=== PATIENT | male | born 1950 | race Caucasian/White ===

== ENCOUNTER 2016-09-14 20:26 | Inpatient (IN) | payer OTHER ==
[~2016-09-14] VITALS: Ht 188 cm; Wt 106.8 kg
[~2016-09-14 20:26] MED LIST: BREO ELLIPTA I1 EACH IH; CEFTIN500 MG PO; DIOVAN HCT 11 TABLET PO; DUONEB 2.5-0.5 M3 ML AEROSOL; FLOMAX0.4 MG PO; NORVASC10 MG PO; PANTOPRAZOLE SO40 MG PO; PERCOCET 5/31 TABLET PO; PRADAXA75 MG PO; PREDNISONE10 MG PO; TESTOSTERO200 MG/12 SQ; TOPROL XL100 MG PO; VENTOLIN HFA18 GM IH; ZYLOPRIM300 MG PO
[2016-09-14 20:59] LABS: EOSINOPHIL (%) 0.8 % (0-5); EOSINOPHIL COUNT 0.1 K/uL (0-0.3); HEMATOCRIT 47.9 % (38.0-50.0); IMMATURE GRANULOCYTE (%) 0.5 % (0.0-0.7); IMMATURE GRANULOCYTE COUNT 0.4 K/uL; LYMPHOCYTE COUNT 3.7 K/uL (1.0-2.8); MCH 31.3 PG (29.0-34.0); MCHC 32.6 G/DL (30.0-36.0); MEAN PLAT.VOLUME 9.7 uM^3 (9.0-12.4); MONOCYTE (%) 10.6 % (3-12); MONOCYTE COUNT 0.9 K/uL (0-0.8); NEUTROPHIL (%) 43.6 % (45-76); NEUTROPHIL COUNT 3.6 K/uL (1.8-6.4); PLATELET COUNT 233 K/uL (156-360); RBC DIS.WIDTH-CV 13.5 % (11.8-14.6); RED BLOOD COUNT 4.99 M/uL (4.00-5.50); WHITE BLOOD COUNT 8.3 K/uL (4.1-10.2)
[2016-09-14 21:11] LABS: AMYLASE 263 IU/L (1-118); CHLORIDE 98 mEq/L (99-109); POTASSIUM 4.7 mEq/L (3.7-5.4); SODIUM 137 mEq/L (136-147)
[2016-09-14 21:13] LABS: GLUCOSE 119 mg/dL (70-99)
[2016-09-14 21:15] LABS: ANION GAP 20 MEQ/L (2-14); INTER. NORMALIZED RATIO 1.2; PROTHROMBIN TIME 12.6 (9.2-11.2); PTT 45.3 (25-32)
[2016-09-14 21:16] LABS: SERUM ETHYL ALCOHOL 181 mg/dL
[2016-09-14 21:17] LABS: GFR ESTIMATE (CALCULATED) 30 mL/min/
[2016-09-14 21:18] LABS: UREA NITROGEN (BUN) 23 mg/dL (9-23)
[2016-09-14 21:20] LABS: TROP-I INTERPRETATION NEGATIVE; TROPONIN-I 0.01 ng/mL (0.0-0.30)
[2016-09-14 21:20] LABS: LIPASE 61 U/L (1.0-51.0)
[2016-09-14 22:50] VITALS: BP 102/77
[2016-09-14 23:12] VITALS: BP 84/45
[2016-09-14 23:30] VITALS: BP 84/45
[2016-09-15] VITALS (16 sets, daily range): BP systolic 102–154; BP diastolic 66–101
[2016-09-15 00:07] LABS: BASE EXCESS -10.6 mEq/L (-3 to +3); BICARBONATE 17.2 mEq/L (22-26); CARBOXY HGB 2.3 % (0-5); METHEMOGLOBIN 1.4 % (0-1.5); PCO2 44 mm Hg (35-45); PO2 536 mm Hg (80-100); SITE ALINE
[2016-09-15 00:08] LABS: DEVICE VENT; FI02 100 %; MECHANICAL RATE 18 resp/min; MODE ACVC; PEEP 5 CM/H20; TIDAL VOLUME 534 ML; TOTAL RESP RATE 18 resp/min
[2016-09-15 00:14] LABS: METH RESISTANT S AUREUS PCR NEGATIVE (NEGATIVE)
[2016-09-15 00:23] LABS: PROBE CHECK PASS; SPECIMEN PROCESSING CONTROL PASS
[2016-09-15 00:26] LABS: HEMATOCRIT 46.5 % (38.0-50.0); MCHC 32.7 G/DL (30.0-36.0); MCV 94.9 FL (86-99); MEAN PLAT.VOLUME 9.7 uM^3 (9.0-12.4); PLATELET COUNT 220 K/uL (156-360); RBC DIS.WIDTH-CV 13.5 % (11.8-14.6); WHITE BLOOD COUNT 9.2 K/uL (4.1-10.2)
[2016-09-15 00:35] LABS: CHLORIDE 106 mEq/L (99-109); SODIUM 136 mEq/L (136-147)
[2016-09-15 00:36] LABS: MAGNESIUM 1.8 mg/dL (1.3-2.7)
[2016-09-15 00:39] LABS: ANION GAP 14 MEQ/L (2-14)
[2016-09-15 00:40] LABS: TOTAL BILIRUBIN 0.4 mg/dL (0.0-1.0)
[2016-09-15 00:42] LABS: ALKALINE PHOSPHATASE 68 IU/L (3-129); GFR ESTIMATE (CALCULATED) 38 mL/min/
[2016-09-15 00:43] LABS: UREA NITROGEN (BUN) 24 mg/dL (9-23)
[2016-09-15 00:47] LABS: TROP-I INTERPRETATION NEGATIVE; TROPONIN-I 0.12 ng/mL (0.0-0.30)
[2016-09-15 00:52] LABS: GLUCOSE 80 mg/dL (70-99); POTASSIUM 5.7 mEq/L (3.7-5.4)
[2016-09-15 01:01] LABS: INTER. NORMALIZED RATIO 1.3; PROTHROMBIN TIME 13.6 (9.2-11.2)
[2016-09-15] MEDS ORDERED: METHOTREXATE2.5 MG PO (01:08)
[2016-09-15] MEDS ORDERED: ATORVASTATIN CA20 MG PO (01:08)
[2016-09-15] MEDS ORDERED: FUROSEMIDE20 MG PO (01:11)
[2016-09-15] MEDS ORDERED: SINGULAIR10 MG PO (01:12)
[2016-09-15] MEDS ORDERED: TURMERIC500 M1 PO (01:14)
[2016-09-15] MEDS ORDERED: GLUCOSA-CHOND-1 EACH PO (01:16)
[2016-09-15] MEDS ORDERED: VALERIAN ROOT100 MG PO (01:17)
[2016-09-15] MEDS ORDERED: GUAIFENESIN400 MG PO (01:18)
[2016-09-15] MEDS ORDERED: VITAMIN C1000 MG PO (01:19)
[2016-09-15] MEDS ORDERED: MOVE FREE ULTR1 EAC1 PO (01:20)
[2016-09-15 02:00] LABS: ADD MIUA? YES; BILIRUBIN NEGATIVE; BLOOD LARGE; COLOR YELLOW ((YELLOW)); GLUCOSE (STRIP) NEGATIVE; KETONES NEGATIVE; LEUKOCYTES NEGATIVE; NITRITE NEGATIVE; PH, URINE 6.5 (5-8); PROTEIN (STRIP) >=300
[2016-09-15 02:13] LABS: SPECIFIC GRAVITY 1.057 (1.000-1.030)
[2016-09-15 02:30] LABS: RED BLOOD CELLS TNTC /HPF (0-5)
[2016-09-15 02:31] LABS: EPITHELIAL CELLS RARE; MUCUS 3+; WHITE BLOOD CELLS 0-5 /HPF (0-5)
[2016-09-15 02:32] LABS: BACTERIA 1+; UCUL ADDED? NO
[2016-09-15 02:33] LABS: AMORPHOUS PHOSPHATE CRYSTALS 3+; CASTS NONE SEEN /LPF; CRYSTALS PRESENT
[2016-09-15 02:46] LABS: C DIFF TOXIN POSITIVE (NEGATIVE)
[2016-09-15 03:01] LABS: PROBE CHECK PASS
[2016-09-15 06:04] LABS: POINT-OF-CARE METER ID UU13113748
[2016-09-15 06:08] LABS: BASE EXCESS -10.2 mEq/L (-3 to +3); BICARBONATE 20.6 mEq/L (22-26); CARBOXY HGB 1.8 % (0-5); COMMENTS - BLOOD GASES C+; DEVICE VENTILATOR; FI02 60 %; MECHANICAL RATE 22 resp/min; METHEMOGLOBIN 1.4 % (0-1.5); MODE AC; PCO2 65 mm Hg (35-45); PEEP 5 CM/H20; PO2 142 mm Hg (80-100); SITE A-LINE; TIDAL VOLUME 500 ML; TOTAL RESP RATE 22 resp/min
[2016-09-15 06:09] LABS: pH 7.11 (7.35-7.45)
[2016-09-15 06:12] LABS: INTER. NORMALIZED RATIO 1.2; PROTHROMBIN TIME 12.4 (9.2-11.2); PTT 40.1 (25-32)
[2016-09-15 06:20] LABS: EOSINOPHIL (%) 0 % (0-5); HEMATOCRIT 51.5 % (38.0-50.0); IMMATURE GRANULOCYTE (%) 0.4 % (0.0-0.7); IMMATURE GRANULOCYTE COUNT 0.1 K/uL; LYMPHOCYTE COUNT 0.8 K/uL (1.0-2.8); MCH 30.9 PG (29.0-34.0); MCHC 31.8 G/DL (30.0-36.0); MEAN PLAT.VOLUME 10.6 uM^3 (9.0-12.4); MONOCYTE (%) 7.7 % (3-12); NEUTROPHIL (%) 85.7 % (45-76); NEUTROPHIL COUNT 10.9 K/uL (1.8-6.4); PLATELET COUNT 255 K/uL (156-360); RBC DIS.WIDTH-CV 13.6 % (11.8-14.6); RBC DIS.WIDTH-SD 48.3 % (39-53); RED BLOOD COUNT 5.31 M/uL (4.00-5.50)
[2016-09-15 06:21] LABS: TROP-I INTERPRETATION INDETERMINATE; TROPONIN-I 0.34 ng/mL (0.0-0.30); WHITE BLOOD COUNT 12.8 K/uL (4.1-10.2)
[2016-09-15 06:24] LABS: ANION GAP 18 MEQ/L (2-14); CHLORIDE 100 MEQ/L (99-109); GFR ESTIMATE (CALCULATED) 40 mL/min/; GLUCOSE 56 mg/dL (70-99); MAGNESIUM 1.6 mg/dl (1.3-2.7); POTASSIUM 5.6 MEQ/L (3.7-5.4); SAMPLE HEMOLYSIS CHECK 0; SAMPLE ICTERIC CHECK 0; SAMPLE LIPEMIA CHECK 0; SODIUM 136 MEQ/L (136-147); UREA NITROGEN (BUN) 25 mg/dL (9-23)
[2016-09-15 07:11] LABS: BASE EXCESS -9.4 mEq/L (-3 to +3); BICARBONATE 19.1 mEq/L (22-26); CARBOXY HGB 1.8 % (0-5); METHEMOGLOBIN 1.3 % (0-1.5)
[2016-09-15 07:12] LABS: COMMENTS - BLOOD GASES A+C+; DEVICE 840; FI02 60 %; INSPIRATION TIME 0.7 seconds; MECHANICAL RATE 26 resp/min; MODE AC; PCO2 50 mm Hg (35-45); PEEP 5 CM/H20; PO2 274 mm Hg (80-100); SITE ALINE; TIDAL VOLUME 500 ML; TOTAL RESP RATE 26 resp/min; pH 7.19 (7.35-7.45)
[2016-09-15 07:13] LABS: POINT-OF-CARE METER ID UU13113748
[2016-09-15 11:49] LABS: BASE EXCESS -9.2 mEq/L (-3 to +3); BICARBONATE 18.4 mEq/L (22-26); CARBOXY HGB 1.6 % (0-5); METHEMOGLOBIN 1.3 % (0-1.5); PCO2 45 mm Hg (35-45); PO2 234 mm Hg (80-100); SITE ALINE; pH 7.22 (7.35-7.45)
[2016-09-15 11:50] LABS: COMMENTS - BLOOD GASES A+C+; DEVICE 840; FI02 60 %; INSPIRATION TIME 0.75 seconds; MECHANICAL RATE 26 resp/min; MODE AC; PEEP 5 CM/H20; TIDAL VOLUME 500 ML; TOTAL RESP RATE 26 resp/min
[2016-09-15 12:16] LABS: POINT-OF-CARE METER ID UU13113803
[2016-09-15 12:49] LABS: EOSINOPHIL (%) 0 % (0-5); HEMATOCRIT 49.8 % (38.0-50.0); IMMATURE GRANULOCYTE (%) 0.2 % (0.0-0.7); LYMPHOCYTE COUNT 0.7 K/uL (1.0-2.8); MCHC 32.9 G/DL (30.0-36.0); MCV 97.3 FL (86-99); MEAN PLAT.VOLUME 10.6 uM^3 (9.0-12.4); MONOCYTE (%) 6.4 % (3-12); MONOCYTE COUNT 0.7 K/uL (0-0.8); NEUTROPHIL (%) 87.2 % (45-76); NEUTROPHIL COUNT 9.7 K/uL (1.8-6.4); PLATELET COUNT 208 K/uL (156-360); RBC DIS.WIDTH-CV 13.5 % (11.8-14.6); RBC DIS.WIDTH-SD 48.4 % (39-53); RED BLOOD COUNT 5.12 M/uL (4.00-5.50); WHITE BLOOD COUNT 11.1 K/uL (4.1-10.2)
[2016-09-15 13:07] LABS: INTER. NORMALIZED RATIO 1.2; PROTHROMBIN TIME 12.6 (9.2-11.2)
[2016-09-15 13:47] LABS: ANION GAP 19 MEQ/L (2-14); CHLORIDE 98 MEQ/L (99-109); GFR ESTIMATE (CALCULATED) 40 mL/min/; POTASSIUM 5.2 MEQ/L (3.7-5.4); SAMPLE HEMOLYSIS CHECK 2; SAMPLE ICTERIC CHECK 0; SAMPLE LIPEMIA CHECK 0; SODIUM 135 MEQ/L (136-147); UREA NITROGEN (BUN) 28 mg/dL (9-23)
[2016-09-15 13:50] LABS: TROP-I INTERPRETATION INDETERMINATE; TROPONIN-I 0.37 ng/mL (0.0-0.30)
[2016-09-15 13:53] LABS: GLUCOSE 195 mg/dL (70-99); MAGNESIUM 2.2 mg/dl (1.3-2.7)
[2016-09-15] MEDS ORDERED: NORVASC5 MG PO (13:57)
[2016-09-15] MEDS ORDERED: BUTRANS1 EACH TD (13:58)
[2016-09-15] MEDS ORDERED: PANTOPRAZOLE SO40 MG PO (14:13)
[2016-09-15] MEDS ORDERED: PREDNISONE10 MG PO (14:14)
[2016-09-15 17:58] LABS: CARBOXY HGB 1.9 % (0-5); COMMENTS - BLOOD GASES C+ANA; DEVICE 840 PB; FI02 60 %; MECHANICAL RATE 26 resp/min; METHEMOGLOBIN 1.1 % (0-1.5); MODE ACVC+; PCO2 46 mm Hg (35-45); PO2 250 mm Hg (80-100); SITE ALINE; TIDAL VOLUME 500 ML; TOTAL RESP RATE 26 resp/min
[2016-09-15 17:59] LABS: INSPIRATION TIME 0.75 seconds; PEEP 5 CM/H20
[2016-09-15 18:15] LABS: POINT-OF-CARE METER ID UU13113748
[2016-09-15 18:23] LABS: ANION GAP 17 MEQ/L (2-14); CHLORIDE 102 MEQ/L (99-109); GFR ESTIMATE (CALCULATED) 38 mL/min/; GLUCOSE 221 mg/dL (70-99); SAMPLE HEMOLYSIS CHECK 2; SAMPLE ICTERIC CHECK 0; SAMPLE LIPEMIA CHECK 0; SODIUM 135 MEQ/L (136-147); UREA NITROGEN (BUN) 32 mg/dL (9-23)
[2016-09-15 18:24] LABS: POTASSIUM 4.4 MEQ/L (3.7-5.4)
[2016-09-15 18:26] LABS: EOSINOPHIL (%) 0 % (0-5); HEMATOCRIT 43.8 % (38.0-50.0); IMMATURE GRANULOCYTE (%) 0.1 % (0.0-0.7); INTER. NORMALIZED RATIO 1.4; LYMPHOCYTE COUNT 0.5 K/uL (1.0-2.8); MCH 31.6 PG (29.0-34.0); MCHC 32.6 G/DL (30.0-36.0); MCV 96.7 FL (86-99); MEAN PLAT.VOLUME 10.6 uM^3 (9.0-12.4); MONOCYTE (%) 4.4 % (3-12); MONOCYTE COUNT 0.4 K/uL (0-0.8); NEUTROPHIL (%) 90.2 % (45-76); NEUTROPHIL COUNT 7.7 K/uL (1.8-6.4); PLATELET COUNT 193 K/uL (156-360); PROTHROMBIN TIME 14.1 (9.2-11.2); PTT 43.3 (25-32); RBC DIS.WIDTH-CV 13.3 % (11.8-14.6); RBC DIS.WIDTH-SD 46.6 % (39-53); RED BLOOD COUNT 4.53 M/uL (4.00-5.50); WHITE BLOOD COUNT 8.5 K/uL (4.1-10.2)
[2016-09-15 18:27] LABS: TROP-I INTERPRETATION NEGATIVE; TROPONIN-I 0.26 ng/mL (0.0-0.30)
[2016-09-16 00:20] LABS: BASE EXCESS -7.7 mEq/L (-3 to +3); BICARBONATE 19.7 mEq/L (22-26); CARBOXY HGB 1.8 % (0-5); METHEMOGLOBIN 1.3 % (0-1.5); PCO2 46 mm Hg (35-45); PO2 117 mm Hg (80-100)
[2016-09-16 00:21] LABS: COMMENTS - BLOOD GASES C+; DEVICE 840; FI02 60 %; INSPIRATION TIME 0.75 seconds; MECHANICAL RATE 26 resp/min; MODE AC; PEEP 5 CM/H20; SITE ALINE; TIDAL VOLUME 500 ML; TOTAL RESP RATE 26 resp/min
[2016-09-16 00:23] LABS: pH 7.24 (7.35-7.45)
[2016-09-16 00:56] LABS: EOSINOPHIL (%) 0 % (0-5); HEMATOCRIT 44.2 % (38.0-50.0); IMMATURE GRANULOCYTE (%) 0.1 % (0.0-0.7); IMMATURE GRANULOCYTE COUNT 0.1 K/uL; LYMPHOCYTE COUNT 0.3 K/uL (1.0-2.8); MCH 30.6 PG (29.0-34.0); MCHC 32.4 G/DL (30.0-36.0); MCV 94.6 FL (86-99); MEAN PLAT.VOLUME 10.1 uM^3 (9.0-12.4); MONOCYTE (%) 6.6 % (3-12); MONOCYTE COUNT 0.6 K/uL (0-0.8); NEUTROPHIL (%) 90.3 % (45-76); NEUTROPHIL COUNT 7.6 K/uL (1.8-6.4); PLATELET COUNT 189 K/uL (156-360); RBC DIS.WIDTH-CV 13.4 % (11.8-14.6); RBC DIS.WIDTH-SD 44.5 % (39-53); RED BLOOD COUNT 4.67 M/uL (4.00-5.50); WHITE BLOOD COUNT 8.4 K/uL (4.1-10.2)
[2016-09-16 01:00] VITALS: BP 92/62
[2016-09-16 01:05] LABS: INTER. NORMALIZED RATIO 1.4; PROTHROMBIN TIME 14.1 (9.2-11.2); PTT 39.4 (25-32)
[2016-09-16 01:06] LABS: CHLORIDE 107 mEq/L (99-109); SODIUM 137 mEq/L (136-147)
[2016-09-16 01:07] LABS: MAGNESIUM 1.9 mg/dL (1.3-2.7)
[2016-09-16 01:08] LABS: GLUCOSE 188 mg/dL (70-99); POTASSIUM 3.5 mEq/L (3.7-5.4)
[2016-09-16 01:10] LABS: ANION GAP 13 MEQ/L (2-14)
[2016-09-16 01:12] LABS: GFR ESTIMATE (CALCULATED) 46 mL/min/
[2016-09-16 01:13] LABS: UREA NITROGEN (BUN) 32 mg/dL (9-23)
[2016-09-16 01:16] LABS: TROP-I INTERPRETATION NEGATIVE; TROPONIN-I 0.18 ng/mL (0.0-0.30)
[2016-09-16 05:00] VITALS: BP 125/68
[2016-09-16 05:28] LABS: POINT-OF-CARE METER ID UU13113731
[2016-09-16 05:47] LABS: EOSINOPHIL (%) 0 % (0-5); IMMATURE GRANULOCYTE (%) 0.1 % (0.0-0.7); LYMPHOCYTE COUNT 0.2 K/uL (1.0-2.8); MCH 31.4 PG (29.0-34.0); MCHC 33.3 G/DL (30.0-36.0); MCV 94.3 FL (86-99); MEAN PLAT.VOLUME 10.7 uM^3 (9.0-12.4); MONOCYTE (%) 8.5 % (3-12); MONOCYTE COUNT 0.7 K/uL (0-0.8); NEUTROPHIL (%) 88.9 % (45-76); NEUTROPHIL COUNT 6.8 K/uL (1.8-6.4); PLATELET COUNT 196 K/uL (156-360); RBC DIS.WIDTH-CV 13.3 % (11.8-14.6); RED BLOOD COUNT 4.56 M/uL (4.00-5.50); WHITE BLOOD COUNT 7.7 K/uL (4.1-10.2)
[2016-09-16 06:00] LABS: INTER. NORMALIZED RATIO 1.3; PROTHROMBIN TIME 13.4 (9.2-11.2); PTT 35.7 (25-32)
[2016-09-16 06:05] LABS: BASE EXCESS -3.9 mEq/L (-3 to +3); BICARBONATE 21.6 mEq/L (22-26); CARBOXY HGB 1.6 % (0-5); COMMENTS - BLOOD GASES C+; METHEMOGLOBIN 1.5 % (0-1.5); PCO2 40 mm Hg (35-45); PO2 193 mm Hg (80-100); SITE ALINE; pH 7.34 (7.35-7.45)
[2016-09-16 06:06] LABS: DEVICE 840; FI02 60 %; INSPIRATION TIME 0.75 seconds; MECHANICAL RATE 26 resp/min; MODE AC; PEEP 5 CM/H20; TIDAL VOLUME 550 ML; TOTAL RESP RATE 26 resp/min
[2016-09-16 06:21] LABS: TROP-I INTERPRETATION NEGATIVE; TROPONIN-I 0.15 ng/mL (0.0-0.30)
[2016-09-16 06:23] LABS: ANION GAP 12 MEQ/L (2-14); CHLORIDE 104 MEQ/L (99-109); GFR ESTIMATE (CALCULATED) 46 mL/min/; GLUCOSE 165 mg/dL (70-99); POTASSIUM 3.3 MEQ/L (3.7-5.4); SAMPLE HEMOLYSIS CHECK 0; SAMPLE ICTERIC CHECK 0; SAMPLE LIPEMIA CHECK 0; SODIUM 138 MEQ/L (136-147); UREA NITROGEN (BUN) 31 mg/dL (9-23)
[2016-09-16 06:24] LABS: MAGNESIUM 1.6 mg/dl (1.3-2.7)
[2016-09-16 07:20] VITALS: BP 87/58
[2016-09-16 09:00] VITALS: BP 74/52
[2016-09-16 11:57] LABS: BASE EXCESS -2.6 mEq/L (-3 to +3); BICARBONATE 23.2 mEq/L (22-26); CARBOXY HGB 1.7 % (0-5); METHEMOGLOBIN 1.5 % (0-1.5); PCO2 43 mm Hg (35-45); PO2 183 mm Hg (80-100); pH 7.34 (7.35-7.45)
[2016-09-16 11:58] LABS: COMMENTS - BLOOD GASES C+; DEVICE 840 VENTILATOR; FI02 60 %; INSPIRATION TIME 0.75 seconds; MECHANICAL RATE 26 resp/min; MODE AC/VC+; PEEP 5 CM/H20; SITE LT RADIAL ALINE; TIDAL VOLUME 550 ML; TOTAL RESP RATE 26 resp/min
[2016-09-16 12:00] LABS: POINT-OF-CARE METER ID UU13113731
[2016-09-16 12:23] LABS: EOSINOPHIL (%) 0 % (0-5); HEMATOCRIT 41.9 % (38.0-50.0); IMMATURE GRANULOCYTE (%) 0.5 % (0.0-0.7); IMMATURE GRANULOCYTE COUNT 0.4 K/uL; LYMPHOCYTE COUNT 0.2 K/uL (1.0-2.8); MCH 30.8 PG (29.0-34.0); MCHC 33.2 G/DL (30.0-36.0); MCV 92.9 FL (86-99); MEAN PLAT.VOLUME 9.9 uM^3 (9.0-12.4); MONOCYTE (%) 6.2 % (3-12); MONOCYTE COUNT 0.5 K/uL (0-0.8); NEUTROPHIL (%) 90.6 % (45-76); NEUTROPHIL COUNT 7.3 K/uL (1.8-6.4); PLATELET COUNT 196 K/uL (156-360); RBC DIS.WIDTH-CV 13.4 % (11.8-14.6); RBC DIS.WIDTH-SD 44.2 % (39-53); RED BLOOD COUNT 4.51 M/uL (4.00-5.50)
[2016-09-16 12:31] LABS: CHLORIDE 107 mEq/L (99-109); POTASSIUM 3.6 mEq/L (3.7-5.4); SODIUM 138 mEq/L (136-147)
[2016-09-16 12:33] LABS: GLUCOSE 131 mg/dL (70-99)
[2016-09-16 12:35] LABS: ANION GAP 12 MEQ/L (2-14)
[2016-09-16 12:37] LABS: GFR ESTIMATE (CALCULATED) 54 mL/min/
[2016-09-16 12:38] LABS: MAGNESIUM 2.4 mg/dL (1.3-2.7); UREA NITROGEN (BUN) 30 mg/dL (9-23)
[2016-09-16 12:43] LABS: TROP-I INTERPRETATION NEGATIVE; TROPONIN-I 0.12 ng/mL (0.0-0.30)
[2016-09-16 12:59] LABS: INTER. NORMALIZED RATIO 1.3; PROTHROMBIN TIME 13.1 (9.2-11.2); PTT 40.1 (25-32)
[2016-09-16 18:01] LABS: POINT-OF-CARE METER ID UU14174217
[2016-09-16] MEDS ORDERED: VALSARTAN-HCTZ1 EAC1 PO (18:32)
[2016-09-16] MEDS ORDERED: TAMSULOSIN HCL0.4 MG PO (18:32)
[2016-09-16] MEDS ORDERED: METOPROLOL SUC100 MG PO (18:33)
[2016-09-16] MEDS ORDERED: PRADAXA75 MG PO (18:33)
[2016-09-16] MEDS ORDERED: MONTELUKAST SOD10 MG PO (18:33)
[2016-09-16] MEDS ORDERED: ATORVASTATIN CA20 MG PO (18:33)
[2016-09-16] MEDS ORDERED: PERCOCET 5/31 TABLET PO (18:34)
[2016-09-16] MEDS ORDERED: AMLODIPINE BESYL5 MG PO (18:34)
[2016-09-16 19:30] LABS: EOSINOPHIL (%) 0 % (0-5); HEMATOCRIT 40.6 % (38.0-50.0); IMMATURE GRANULOCYTE (%) 0.2 % (0.0-0.7); LYMPHOCYTE COUNT 0.2 K/uL (1.0-2.8); MCH 31.3 PG (29.0-34.0); MCHC 33.3 G/DL (30.0-36.0); MEAN PLAT.VOLUME 10.8 uM^3 (9.0-12.4); MONOCYTE (%) 6.6 % (3-12); MONOCYTE COUNT 0.6 K/uL (0-0.8); NEUTROPHIL (%) 90.7 % (45-76); NEUTROPHIL COUNT 7.7 K/uL (1.8-6.4); PLATELET COUNT 194 K/uL (156-360); RBC DIS.WIDTH-CV 13.4 % (11.8-14.6); RBC DIS.WIDTH-SD 45.8 % (39-53); RED BLOOD COUNT 4.32 M/uL (4.00-5.50); WHITE BLOOD COUNT 8.5 K/uL (4.1-10.2)
[2016-09-16 19:55] LABS: ANION GAP 11 MEQ/L (2-14); CHLORIDE 106 MEQ/L (99-109); GFR ESTIMATE (CALCULATED) 46 mL/min/; MAGNESIUM 1.8 mg/dl (1.3-2.7); POTASSIUM 3.9 MEQ/L (3.7-5.4); SAMPLE HEMOLYSIS CHECK 0; SAMPLE ICTERIC CHECK 0; SAMPLE LIPEMIA CHECK 0; SODIUM 139 MEQ/L (136-147); TROP-I INTERPRETATION NEGATIVE; TROPONIN-I 0.17 ng/mL (0.0-0.30); UREA NITROGEN (BUN) 29 mg/dL (9-23)
[2016-09-16 19:56] LABS: GLUCOSE 93 mg/dL (70-99)
[2016-09-16 19:58] LABS: INTER. NORMALIZED RATIO 1.3; PROTHROMBIN TIME 13.2 (9.2-11.2)
[2016-09-16 22:00] VITALS: BP 113/61
[2016-09-16 23:00] VITALS: BP 116/64
[2016-09-17] VITALS (24 sets, daily range): BP systolic 92–163; BP diastolic 51–79
[2016-09-17] LABS: POINT-OF-CARE METER ID UU14174217
[2016-09-17 00:45] LABS: POINT-OF-CARE METER ID UU13113731
[2016-09-17 05:22] LABS: POINT-OF-CARE METER ID UU14162636
[2016-09-17 05:39] LABS: EOSINOPHIL (%) 0 % (0-5); HEMATOCRIT 41.8 % (38.0-50.0); IMMATURE GRANULOCYTE (%) 0.2 % (0.0-0.7); LYMPHOCYTE COUNT 0.2 K/uL (1.0-2.8); MCH 30.5 PG (29.0-34.0); MCHC 31.3 G/DL (30.0-36.0); MCV 97.4 FL (86-99); MEAN PLAT.VOLUME 10.4 uM^3 (9.0-12.4); MONOCYTE (%) 2.6 % (3-12); MONOCYTE COUNT 0.2 K/uL (0-0.8); NEUTROPHIL (%) 94.6 % (45-76); NEUTROPHIL COUNT 8.1 K/uL (1.8-6.4); PLATELET COUNT 192 K/uL (156-360); RBC DIS.WIDTH-SD 49.5 % (39-53); RED BLOOD COUNT 4.29 M/uL (4.00-5.50); WHITE BLOOD COUNT 8.6 K/uL (4.1-10.2)
[2016-09-17 06:00] LABS: INTER. NORMALIZED RATIO 1.2; PROTHROMBIN TIME 12.4 (9.2-11.2); PTT 41.2 (25-32)
[2016-09-17 06:04] LABS: ANION GAP 11 MEQ/L (2-14); CHLORIDE 104 MEQ/L (99-109); GFR ESTIMATE (CALCULATED) 35 mL/min/; MAGNESIUM 1.8 mg/dl (1.3-2.7); POTASSIUM 4.6 MEQ/L (3.7-5.4); SAMPLE HEMOLYSIS CHECK 0; SAMPLE ICTERIC CHECK 0; SAMPLE LIPEMIA CHECK 0; SODIUM 139 MEQ/L (136-147); UREA NITROGEN (BUN) 34 mg/dL (9-23)
[2016-09-17 06:06] LABS: GLUCOSE 175 mg/dL (70-99)
[2016-09-17 11:03] LABS: BASE EXCESS -1.8 mEq/L (-3 to +3); BICARBONATE 27.2 mEq/L (22-26); METHEMOGLOBIN 1.4 % (0-1.5)
[2016-09-17 11:04] LABS: PCO2 65 mm Hg (35-45); PO2 71 mm Hg (80-100); SITE LB; pH 7.23 (7.35-7.45)
[2016-09-17 11:05] LABS: COMMENTS - BLOOD GASES C+; DEVICE 840; FI02 40 %; MECHANICAL RATE 16 resp/min; MODE A/C; PEEP 5 CM/H20; TIDAL VOLUME 520 ML; TOTAL RESP RATE 16 resp/min
[2016-09-17 12:06] LABS: POINT-OF-CARE METER ID UU13113731
[2016-09-17 12:54] LABS: POINT-OF-CARE METER ID UU13113731
[2016-09-17 17:35] LABS: POINT-OF-CARE METER ID UU13113731
[2016-09-17 23:27] LABS: POINT-OF-CARE METER ID UU13113731
[2016-09-18] VITALS (22 sets, daily range): BP systolic 116–175; BP diastolic 61–102
[2016-09-18 05:44] LABS: MEAN PLAT.VOLUME 11.3 uM^3 (9.0-12.4); PLATELET COUNT 209 K/uL (156-360)
[2016-09-18 05:50] LABS: POINT-OF-CARE METER ID UU13113731
[2016-09-18 05:53] LABS: INTER. NORMALIZED RATIO 1.1; PROTHROMBIN TIME 11.2 (9.2-11.2); PTT 40.1 (25-32)
[2016-09-18 06:12] LABS: HEMATOCRIT 38.9 % (38.0-50.0); MCH 31.5 PG (29.0-34.0); MCHC 33.2 G/DL (30.0-36.0); MCV 94.9 FL (86-99); RBC DIS.WIDTH-CV 13.9 % (11.8-14.6); RBC DIS.WIDTH-SD 48.2 % (39-53); WHITE BLOOD COUNT 10.9 K/uL (4.1-10.2)
[2016-09-18 06:35] LABS: ANION GAP 6 MEQ/L (2-14); CHLORIDE 107 MEQ/L (99-109); GFR ESTIMATE (CALCULATED) 40 mL/min/; GLUCOSE 159 mg/dL (70-99); POTASSIUM 4.5 MEQ/L (3.7-5.4); SAMPLE HEMOLYSIS CHECK 0; SAMPLE ICTERIC CHECK 0; SAMPLE LIPEMIA CHECK 0; SODIUM 141 MEQ/L (136-147); UREA NITROGEN (BUN) 34 mg/dL (9-23)
[2016-09-18 06:36] LABS: MAGNESIUM 2.2 mg/dl (1.3-2.7)
[2016-09-18 07:16] LABS: ABS NEUTROPHIL COUNT 10.26; ANISOCYTOSIS 1+; MACROCYTES 1+; PLAT.SUFFICIENCY ADEQUATE
[2016-09-18 07:48] LABS: DELETE MACHINE DIFF? YES
[2016-09-18 13:59] LABS: POINT-OF-CARE METER ID UU13113731
[2016-09-18 17:46] LABS: POINT-OF-CARE METER ID UU13113731
[2016-09-19] VITALS (20 sets, daily range): BP systolic 108–159; BP diastolic 66–93
[2016-09-19 05:39] LABS: EOSINOPHIL (%) 0 % (0-5); HEMATOCRIT 41.8 % (38.0-50.0); IMMATURE GRANULOCYTE (%) 0.2 % (0.0-0.7); LYMPHOCYTE COUNT 0.4 K/uL (1.0-2.8); MCH 30.5 PG (29.0-34.0); MCHC 31.6 G/DL (30.0-36.0); MCV 96.5 FL (86-99); MEAN PLAT.VOLUME 10.8 uM^3 (9.0-12.4); MONOCYTE (%) 8.5 % (3-12); MONOCYTE COUNT 0.7 K/uL (0-0.8); NEUTROPHIL COUNT 7.5 K/uL (1.8-6.4); PLATELET COUNT 192 K/uL (156-360); RBC DIS.WIDTH-CV 14.2 % (11.8-14.6); RBC DIS.WIDTH-SD 49.7 % (39-53); RED BLOOD COUNT 4.33 M/uL (4.00-5.50); WHITE BLOOD COUNT 8.6 K/uL (4.1-10.2)
[2016-09-19 05:58] LABS: ANION GAP 9 MEQ/L (2-14); CHLORIDE 108 MEQ/L (99-109); GFR ESTIMATE (CALCULATED) 43 mL/min/; GLUCOSE 145 mg/dL (70-99); MAGNESIUM 2.3 mg/dl (1.3-2.7); POTASSIUM 5.1 MEQ/L (3.7-5.4); SAMPLE HEMOLYSIS CHECK 1; SAMPLE ICTERIC CHECK 0; SAMPLE LIPEMIA CHECK 0; SODIUM 142 MEQ/L (136-147); UREA NITROGEN (BUN) 43 mg/dL (9-23)
[2016-09-19 06:05] LABS: INTER. NORMALIZED RATIO 1.1; PROTHROMBIN TIME 11.2 (9.2-11.2); PTT 38.3 (25-32)
[2016-09-19 23:34] LABS: POINT-OF-CARE METER ID UU13113803
[2016-09-20] VITALS (12 sets, daily range): BP systolic 99–174; BP diastolic 54–94
[2016-09-20 05:42] LABS: POINT-OF-CARE METER ID UU14174217
[2016-09-20 12:15] LABS: POINT-OF-CARE METER ID UU14174217
== END 2016-09-20 12:50 | DRG 208 ==
LOC: EME → EDBD 20:26 → EME 21:10 → CATH 21:10 → 2SOUTH 21:47 → 4WEST 21:47
PROVIDERS: Emergency Medicine; Internal Medicine Pulmonary Disease
DX: J96.00 Acute respiratory failure, unspecified whether with hypoxia or hypercapnia (principal); T17.220A Food in pharynx causing asphyxiation, initial encounter; R40.20 Unspecified coma; I46.9 Cardiac arrest, cause unspecified; N17.9 Acute kidney failure, unspecified; A04.7 Enterocolitis due to Clostridium difficile; G93.1 Anoxic brain damage, not elsewhere classified; Z51.5 Encounter for palliative care; G47.33 Obstructive sleep apnea (adult) (pediatric); J44.9 Chronic obstructive pulmonary disease, unspecified; I12.9 Hypertensive chronic kidney disease with stage 1 through stage 4 chronic kidney disease, or unspecified chronic kidney disease; N18.9 Chronic kidney disease, unspecified; I48.0 Paroxysmal atrial fibrillation; Z99.81 Dependence on supplemental oxygen; E11.9 Type 2 diabetes mellitus without complications; E78.5 Hyperlipidemia, unspecified; M19.90 Unspecified osteoarthritis, unspecified site; G89.29 Other chronic pain; M54.9 Dorsalgia, unspecified; F17.210 Nicotine dependence, cigarettes, uncomplicated; G25.3 Myoclonus; Z79.01 Long term (current) use of anticoagulants
CPT/HCPCS: 36600; 70450; 71010; 74000; 80048; 80048 91; 80053; 81003; 82150; 82330; 82803; 82948; 83605; 83690; 83735; 84100; 84484; 85025; 85025 91; 85027; 85347; 85610; 85730; 86850; 86900; 86901; 87040; 87070; 87205; 87493; 87641; 93005; 93306; 94002; 94003; 94640; 94640 76; 94760; 95819; 99202; 99281; 99285; C1769; C1887; G0480; J0282; J0461; J1644; J1650; J1815; J1940; J1953; J2060; J2250; J2310; J2920; J2930; J3010; J3475; J7030; J7050; J7120; P9045; S0028; S0030